=== PATIENT | female | born 1955 | race Caucasian/White ===

== ENCOUNTER 2019-06-17 07:46 | Day surgery (SDC) | payer MEDICARE, BC ==
[~2019-06-17 07:46] MED LIST: Buffered Lidocaine 1% SYRIN* 1 ML/SYRINGE INTRADERM ONE; Lactated Ringers 1000 ML Bag* 1,000 ML IV SCH
[2019-06-17] MEDS ORDERED: Clindamycin 900 MG/D5W BAG(*) 900 MG/50 ML BAG IVPB ONE (08:07)
[2019-06-17] MEDS ORDERED: Buffered Lidocaine 1% SYRIN* 1 ML/SYRINGE INTRADERM ONE (08:07)
[2019-06-17] MEDS ORDERED: Glycopyrrolate IV* 0.2 MG/ML 1 ML VIAL ONE (09:19)
[2019-06-17] MEDS ORDERED: fentaNYL* 50 MCG/ML 2 ML VIAL (100 MCG VIAL) ONE (09:19)
[2019-06-17] MEDS ORDERED: Propofol* 500 MG/50 ML BTL ONE (09:19)
[2019-06-17] MEDS ORDERED: Ondansetron INJ* 2 MG/ML VIAL ONE (09:19)
[2019-06-17] MEDS ORDERED: Dexamethasone IV* 4 MG/ML 1 ML (4 MG) ONE (09:19)
[2019-06-17] MEDS ORDERED: Ketorolac INJ* 30 MG/ML 1 ML VIAL ONE (09:19)
[2019-06-17] MEDS ORDERED: Midazolam* 1 MG/ML 2 ML VIAL (2 MG) ONE (09:20)
[2019-06-17] MEDS ORDERED: Lidocaine 2% PF* 10 ML AMP ONE (10:04)
[2019-06-17] MEDS ORDERED: Naloxone* 0.4 MG/ML 1 ML VIAL IV PRN ×2 (10:45→12:05)
[2019-06-17] MEDS ORDERED: oxyCODONE/Acetamin 5/325 MG* TAB PO PRN ×2 (10:45→12:03)
[2019-06-17] MEDS ORDERED: oxyCODONE TAB* 5 MG TAB ONE (12:04)
[2019-06-17] MEDS ORDERED: oxyCODONE/Acetamin 5/325 MG* TAB ONE (12:08)
[2019-06-17 12:26] VITALS: BP 131/89
--- NOTE | 2019-06-17 21:02 | OP ---
DATE OF OPERATION: 06/17/19 - [facility] DATE OF : 51 SURGEON: Roddy Christianson MD [employer]NER: JUDY Isaacs PRE-OP DIAGNOSIS: Dislocated fixed right second hammertoe and then fixed right third hammertoe. POST-OP DIAGNOSIS: OPERATIVE PROCEDURE: Right foot second and third hammertoe repair; second metatarsophalangeal resection arthroplasty. DESCRIPTION OF PROCEDURE: The patient was taken to the operating room where longitudinal incision was made between the second and third MTP joints. The second MTP joint was exposed after releasing the brevis tendon. Full capsulotomy was made of the joint by flexing the proximal phalanx plantarward. We were able to expose the condyles, which were arthritic. The resection arthroplasty was performed, making chamfer cuts with the microsagittal saw. We then made transverse elliptical incisions over the second and third PIP joints after excising the skin and extensor tendon garcia. The condyles were exposed and then removed with the narrow microsagittal blade. The second toe was pinned longitudinally in a neutral position using a 0.062 C wire backed across the MTP resection into the shaft of the metatarsal and the third PIP joint pinned in a similar fashion. All wounds were then irrigated and closed with Monocryl with nylon sutures and a compression dressing applied. [id number]/[facility] #: [id number] [facility]
== END 2019-06-17 12:41 | disposition home or self-care (01) ==
LOC: OR 07:46
PROVIDERS: ATTEND Orthopaedic Surgery
DX: M20.41 Other hammer toe(s) (acquired), right foot (principal); Z88.0 Allergy status to penicillin; Z87.891 Personal history of nicotine dependence; E78.00 Pure hypercholesterolemia, unspecified
CPT/HCPCS: A9270-GY; C1776; J1100; J1885; J2001; J2250; J2405; J2704; J3010

== ENCOUNTER 2020-02-13 05:37 | Observation (INO) ==
[2020-02-13] MEDS ORDERED: Lactated Ringers 1000 ml BAG 1,000 ML IV SCH (06:00)
[2020-02-13] MEDS ORDERED: Buffered Lidocaine 1% SYRIN 1 ml INTRADERM ONE (06:00)
[2020-02-13] MEDS ORDERED: Dexamethasone IV 4 MG/ML VIAL 1 ml VIAL IV SLOW PU ONE (06:00)
[2020-02-13] MEDS ORDERED: Dexamethasone IV 4 MG/ML VIAL 1 ml VIAL ONE (06:25)
[2020-02-13] MEDS ORDERED: Clindamycin 900 MG/D5W BAG 900 MG/50 ML BAG IVPB ONE (06:26)
[2020-02-13] MEDS ORDERED: Lidocaine 2% PF 10 ML AMP ONE (07:05)
[2020-02-13] MEDS ORDERED: ROPIVACAINE 5 MG/ML 30 ML BTL (0.5%) ONE ×2 (07:11→07:12)
[2020-02-13] MEDS ORDERED: Lidocaine 2% PF 5 ML VIAL ONE (07:12)
[2020-02-13] MEDS ORDERED: Midazolam 2 mg/2 ml VIAL 1 mg/ml 2 ml VIAL (2 mg) ONE (07:16)
[2020-02-13] MEDS ORDERED: fentaNYL 100 mcg/2 ml 50 MCG/ML VIAL ONE (07:17)
[2020-02-13] MEDS ORDERED: Naloxone 0.4 mg VIAL 0.4 mg/ml 1 ml VIAL IV PRN (10:42)
[2020-02-13] MEDS ORDERED: fentaNYL 100 mcg/2 ml 50 MCG/ML VIAL IV PRN (10:42)
[2020-02-13] MEDS ORDERED: HYDROmorphone 1 MG/1 ML SYRINGE IV PRN (10:42)
[2020-02-13] MEDS ORDERED: Ondansetron 4 mg VIAL 2 MG/ML 2 ml VIAL IV PRN ×2 (10:42→10:48)
[2020-02-13] MEDS ORDERED: Ondansetron ODT 4 mg TAB 4 MG TAB PO PRN (10:48)
[2020-02-13] MEDS ORDERED: Lactulose 30 ml UDC PO PRN (10:48)
[2020-02-13] MEDS ORDERED: diPHENhydraMINE IV 50 MG/ML 1 ml VIAL (BENADRYL) IV PRN (10:48)
[2020-02-13] MEDS ORDERED: Magnesium Hydroxide LIQ 30 ML UDC PO PRN (10:48)
[2020-02-13] MEDS ORDERED: Morphine 2 MG/ML SYRINGE IV PRN (10:48)
[2020-02-13] MEDS ORDERED: diPHENhydraMINE 25 mg TAB PO PRN (10:48)
[2020-02-13] MEDS ORDERED: HYDROcodone/ACETAMIN 5/325 mg TAB PO PRN (10:54)
[2020-02-13] MEDS ORDERED: HYDROcodone/ACETAMIN 5/325 mg TAB ONE (11:10)
[2020-02-13] MEDS: Lactated Ringers 1000 ml BAG 1,000 ML IV SCH ×2 (12:21→23:37)
[2020-02-13] MEDS: Clindamycin 600 MG/D5W BAG 600 MG/50 ML BAG IV SCH ×2 (15:30→23:37)
[2020-02-13] MEDS: Magnesium Hydroxide LIQ 30 ML UDC PO SCH (21:07)
[2020-02-14 07:15] LABS: Hematocrit 34 % (35-47); Hemoglobin 12.2 g/dL (12.0-16.0); Mean Platelet Volume 9.2 fL (7.4-10.4); Platelet Count 201 10^3/uL (150-450)
[2020-02-14 07:28] LABS: Calcium 8.3 mg/dL (8.6-10.3); EGFR African American 77.8 (>60); EGFR Non-African American 64.3 (>60); Potassium 3.6 mmol/L (3.5-5.0)
[2020-02-14] MEDS: Clindamycin 600 MG/D5W BAG 600 MG/50 ML BAG IV SCH (07:59)
[2020-02-14] MEDS: Magnesium Hydroxide LIQ 30 ML UDC PO SCH (08:51)
[2020-02-14] MEDS ORDERED: Vitamin THERAPEUTIC TAB PO SCH (09:00)
[2020-02-14 11:16] VITALS: BP 112/59
== END 2020-02-14 14:00 | disposition home or self-care (01) ==
LOC: SSU 05:37 → OR 05:37
PROVIDERS: ADMIT Orthopaedic Surgery Adult Reconstructive Orthopaedic Surgery; ATTEND Orthopaedic Surgery Adult Reconstructive Orthopaedic Surgery

== ENCOUNTER 2022-01-20 11:54 | Observation (INO) ==
[~2022-01-20 11:54] MED LIST changes: +Buffered Lidocaine 1% SYRIN 1 ml INTRADERM ONE; -Buffered Lidocaine 1% SYRIN* 1 ML/SYRINGE INTRADERM ONE; -Lactated Ringers 1000 ML Bag* 1,000 ML IV SCH; +Lactated Ringers 1000 ml BAG 1,000 ML IV SCH
[2022-01-20] MEDS ORDERED: Clindamycin 900 MG/D5W BAG 900 MG/50 ML BAG IVPB ONE (12:23)
[2022-01-20] MEDS ORDERED: ROPIVACAINE 5 MG/ML 30 ML BTL (0.5%) ONE ×2 (13:05→14:53)
[2022-01-20] MEDS ORDERED: Propofol 10 MG/ML 20 ML BTL ONE ×3 (13:20→16:56)
[2022-01-20] MEDS ORDERED: Lidocaine 2% PF 5 ML VIAL ONE (13:20)
[2022-01-20] MEDS ORDERED: Midazolam 2 mg/2 ml VIAL 1 mg/ml 2 ml VIAL (2 mg) ONE (13:43)
[2022-01-20] MEDS ORDERED: fentaNYL 100 mcg/2 ml 50 MCG/ML VIAL ONE ×2 (13:43→17:01)
[2022-01-20] MEDS ORDERED: Scopolamine 1 mg/72hr PATCH ONE (14:53)
[2022-01-20] MEDS ORDERED: Famotidine IV 10 MG/ML 2 ml VIAL (20 mg) ONE (14:54)
[2022-01-20] MEDS ORDERED: Bupivacaine 0.5% PF 10 ML SDV VIAL INJ ONE (15:10)
[2022-01-20] MEDS ORDERED: Ondansetron 4 mg VIAL 2 MG/ML 2 ml VIAL ONE ×2 (16:12→18:02)
[2022-01-20] MEDS ORDERED: fentaNYL 100 mcg/2 ml 50 MCG/ML VIAL IV PRN (16:20)
[2022-01-20] MEDS ORDERED: Ondansetron 4 mg VIAL 2 MG/ML 2 ml VIAL IV PRN ×2 (16:20→16:50)
[2022-01-20] MEDS ORDERED: Scopolamine 1 mg/72hr PATCH TRANSDERM PRN (16:20)
[2022-01-20] MEDS ORDERED: Naloxone 0.4 mg VIAL 0.4 mg/ml 1 ml VIAL IV PRN (16:20)
[2022-01-20] MEDS ORDERED: Ropivacaine 5 MG/ML 20 ML VIAL 0.5% (100 MG) ONE (16:34)
[2022-01-20] MEDS ORDERED: Ondansetron ODT 4 mg TAB 4 MG TAB PO PRN (16:50)
[2022-01-20] MEDS ORDERED: Morphine 2 MG/ML SYRINGE IV PRN (16:50)
[2022-01-20] MEDS ORDERED: Lactulose 30 ml UDC PO PRN (16:50)
[2022-01-20] MEDS ORDERED: Magnesium Hydroxide LIQ 30 ML UDC PO PRN (16:50)
[2022-01-20] MEDS ORDERED: Lactated Ringers 1000 ml BAG 1,000 ML IV SCH (17:00)
[2022-01-20] MEDS ORDERED: Acetaminophen IV 1 GM/100ML 1,000 MG/100 ML BAG IV ONE (17:10)
[2022-01-20] MEDS ORDERED: PTO: Azelastine 0.15% NASAL(NF) 30 ML BTL BOTH NARES PRN (17:53)
[2022-01-20] MEDS ORDERED: Prochlorperazine 5 mg/ml 2 ml VIAL (10 mg) ONE (18:02)
[2022-01-20] MEDS ORDERED: Prochlorperazine 5 mg/ml 2 ml VIAL (10 mg) IV PRN (18:34)
[2022-01-20] MEDS: Magnesium Hydroxide LIQ 30 ML UDC PO SCH (21:48)
[2022-01-20] MEDS: Clindamycin 600 MG/D5W BAG 600 MG/50 ML BAG IV SCH (23:12)
[2022-01-21 06:17] LABS: Hematocrit 33 % (35-47); Hemoglobin 11.6 g/dL (12.0-16.0); Mean Platelet Volume 8.5 fL (7.4-10.4); Platelet Count 200 10^3/uL (150-450)
[2022-01-21 06:33] LABS: Calcium 8.2 mg/dL (8.6-10.3); Magnesium 1.7 mg/dL (1.9-2.7); Potassium 3.9 mmol/L (3.5-5.0)
[2022-01-21] MEDS ORDERED: Magnesium Sulfate 2 gm BAG 2 GM/50 ML BAG IVPB ONE (07:29)
[2022-01-21] MEDS: Magnesium Hydroxide LIQ 30 ML UDC PO SCH (08:19)
[2022-01-21] MEDS ORDERED: Vitamin THERAPEUTIC TAB PO SCH (09:00)
[2022-01-21] MEDS: Clindamycin 600 MG/D5W BAG 600 MG/50 ML BAG IV SCH ×2 (10:35→15:49)
[2022-01-21 11:08] VITALS: BP 93/65
== END 2022-01-21 16:25 | disposition home or self-care (01) ==
LOC: OR 11:54 → SSU 11:54
PROVIDERS: ADMIT Orthopaedic Surgery Adult Reconstructive Orthopaedic Surgery; ATTEND Orthopaedic Surgery Adult Reconstructive Orthopaedic Surgery